=== PATIENT | male | born 1985 | race African-American/Black ===

== ENCOUNTER 2019-03-16 20:46 | Emergency (ER) | payer OTHER ==
[2019-03-16 20:54] VITALS: BP 136/94; PULSE 84; TEMP 98.3; BMI 42.1
--- NOTE | 2019-03-16 20:55 | PDOC ---
Rapid Medical Evaluation Time Seen by Provider: 03/16/19 20:50 Medical Evaluation: 03/16/19 20:51 Pt presents with R calf pain starting today. He states the pain is deep and like a deep ache. Works as a school bus drive. No recent travel. Does not smoke Exam: Calf pain is not reproducible on exam, ambulatory Orders: duplex US Pt to proceed to the ER for further evaluation Discharge Disposition - Diagnosis Calf pain Qualifiers: Laterality: right Qualified Code(s): M79.661 - Pain in right lower leg - Referrals - Patient Instructions - Post Discharge Activity
--- NOTE | 2019-03-16 22:07 | PDOC ---
History of Present Illness - General Chief Complaint: Pain, Acute Stated Complaint: RT CALF PAIN Time Seen by Provider: 03/16/19 20:50 - History of Present Illness Initial Comments: 03/16/19 22:02 34-year-old male without comorbidities presents for evaluation of right leg pain times one day without any precipitating traumatic event. Systemic symptoms. Past History - Past Medical History Allergies/Adverse Reactions: Allergies Allergy/AdvReac Type Severity Reaction Status Date / Time No Known Allergies Allergy Verified 03/16/19 20:54 Home Medications: Ambulatory Orders NK [No Known Home Medication] 03/16/19 COPD: No - Suicide/Smoking/Psychosocial Hx Smoking History: Never smoked Review of Systems - Review of Systems Musculoskeletal: Yes: Symptoms Reported, Muscle Pain *Physical Exam - Vital Signs Last Vital Signs Temp Pulse Resp BP Pulse Ox 98.3 F 84 18 136/94 98 03/16/19 20:48 03/16/19 20:48 03/16/19 20:48 03/16/19 20:48 03/16/19 20:48 - Physical Exam Comments: 03/16/19 22:04 HEAD: NC/AT EYES: Conjuntiva clear Right lower extremity skin color and temperature are normal. There is no swelling. Calf is soft and floppy. There is mild tenderness about the knee Deihl head of the gastroc. There are no gross sensory motor deficits neurovascular intact 5 out of 5 strength. MS: Full ROM in all joints without edema NEUROLOGIC: No gross sensory or motor deficits, NVID SKIN: Normal color and temperature no lesions or rashes Medical Decision Making - Medical Decision Making 03/16/19 22:05 Ultrasound negative for DVT. This is a medial gastroc strain weight-bear as tolerated follow-up with orthopedics Tylenol and Motrin for pain this was discussed *DC/Admit/Observation/Transfer Diagnosis at time of Disposition: Gastrocnemius muscle strain Calf pain Qualifiers: Laterality: right Qualified Code(s): M79.661 - Pain in right lower leg - Discharge Dispostion Disposition: HOME Condition at time of disposition: Stable Decision to Admit order: No - Referrals Referrals: Chencho Flaherty DO [Staff Physician] - - Patient Instructions Printed Discharge Instructions: Calf Muscle Strain, DI for Calf Muscle Strain Additional Instructions: He may weight-bear as tolerated and use Tylenol and Motrin for pain. Return to the emergency room for worsening symptoms and follow-up with orthopedic surgery in one to 2 days without fail for further evaluation and treatment options. - Post Discharge Activity
== END 2019-03-16 22:14 | disposition home or self-care (01) ==
LOC: JERFT 20:46
DX: S86.111A Strain of other muscle(s) and tendon(s) of posterior muscle group at lower leg level, right leg, initial encounter (principal); X58.XXXA Exposure to other specified factors, initial encounter; Y93.89 Activity, other specified; Y92.89 Other specified places as the place of occurrence of the external cause; Y99.8 Other external cause status
CPT/HCPCS: 93971-TC; 99282-25